=== PATIENT | male | born 1950 | race African-American/Black ===

== ENCOUNTER 2019-11-15 11:58 | Emergency (ER) | payer MEDICARE, MEDICAID ==
[~2019-11-15] VITALS: Ht 177.8 cm; Wt 79.0 kg
[2019-11-15] MEDS ORDERED: HYDROCODONE/ACETAMINOPHEN 5/325MG TABLET PO STA (12:46)
[2019-11-15 13:32] VITALS: BP 173/105
== END 2019-11-15 14:43 | disposition home or self-care (01) ==
LOC: ER 11:58
DX: S20.212A Contusion of left front wall of thorax, initial encounter (principal); W11.XXXA Fall on and from ladder, initial encounter; Y93.89 Activity, other specified; Y92.89 Other specified places as the place of occurrence of the external cause
CPT/HCPCS: 71101; 99283

== ENCOUNTER 2023-10-23 16:27 | Inpatient (IN) | payer MEDICARE, MEDICAID ==
[~2023-10-23] VITALS: Ht 177.8 cm; Wt 69.9 kg
[2023-10-23 22:59] LABS: BASOPHILS % 0.4 % (0.0-2.0); EOSINOPHILS % 0.1 % (0.0-5.0); HEMATOCRIT. 44.9 % (42.0-52.0); HEMOGLOBIN. 14.9 g/dL (14.0-18.0); LYMPHOCYTES % 7.8 % (20.0-50.0); MEAN CORPUSCULAR HGB CONC 33.2 g/dL (31.0-37.0); MEAN CORPUSCULAR VOLUME 96.4 fL (80.0-94.0); MEAN PLATELET VOLUME 8.2 fl (7.4-10.4); MONOCYTES % 5.7 % (2.0-8.0); PLATELET 168 x1000/uL (130-400); RED BLOOD CELL COUNT 4.66 mill/uL (4.7-6.1); WHITE BLOOD COUNT 5.2 x1000/uL (4.5-11.0)
[2023-10-23 23:08] LABS: POTASSIUM 4.7 mEq/L (3.5-5.1)
[2023-10-23 23:14] LABS: CREATININE 2.5 mg/dL (0.6-1.3)
[2023-10-24 01:51] VITALS: BP 151/83; PULSE 85; RESP 18
[2023-10-24 02:26] LABS: PROTHROMBIN TIME 11.2 sec (9.6-11.0)
[2023-10-24] MEDS ORDERED: ACETAMINOPHEN 650MG/20.3ML UDC PO PRN (02:30)
[2023-10-24] MEDS ORDERED: ONDANSETRON HCL 4MG/2ML INJ IV PRN (02:30)
[2023-10-24 04:56] VITALS: BP 151/83; PULSE 85; RESP 18; TEMP 98.1
[2023-10-24] MEDS: AMLODIPINE 10MG TABLET PO SCH (08:34)
[2023-10-24] MEDS: HYDROCODONE/ACETAMINOPHEN 5/325MG TABLET PO PRN (08:38)
[2023-10-24 08:42] VITALS: BP 142/90; PULSE 89; RESP 20; TEMP 98.4
[2023-10-24] MEDS ORDERED: NALOXONE HCL 0.4MG/ML VIAL IV PRN (11:45)
[2023-10-24 12:00] VITALS: BP 143/88; PULSE 87; RESP 21; TEMP 97.6
[2023-10-24] MEDS: LORAZEPAM 2MG/ML INJ IV NR (12:36)
[2023-10-24 16:00] VITALS: BP 156/97; PULSE 87; RESP 20; TEMP 98
[2023-10-24 20:00] VITALS: BP 134/92; PULSE 72; RESP 18; TEMP 97.8
[2023-10-24] MEDS: HYDRALAZINE HCL 25MG TABLET PO SCH (21:05)
[2023-10-25] VITALS: BP 146/89; PULSE 70; RESP 18; TEMP 97.5
[2023-10-25 04:00] VITALS: BP 137/88; PULSE 92; RESP 18; TEMP 97.7
[2023-10-25 20:00] VITALS: BP 131/87; PULSE 70; RESP 20; TEMP 97.9
[2023-10-26] VITALS: BP 145/94; PULSE 102; RESP 19; TEMP 97.7
[2023-10-26 04:00] VITALS: BP 134/91; PULSE 95; RESP 19; TEMP 97.6
[2023-10-26 08:00] VITALS: BP 137/90; PULSE 94; RESP 18; TEMP 97.7
[2023-10-26] MEDS: HYDROCODONE/ACETAMINOPHEN 10/325MG TABLET PO PRN (09:16)
[2023-10-26 12:00] VITALS: BP 126/84; PULSE 97; RESP 18; TEMP 98
[2023-10-26] MEDS ORDERED: HYDR-4001 MT (14:32)
[2023-10-26 15:08] VITALS: BP 126/84; PULSE 97; TEMP 98; O2SAT 99
[2023-10-26 16:00] VITALS: BP 136/84; PULSE 97; RESP 20; TEMP 98.5
== END 2023-10-26 18:08 | disposition home or self-care (01) | DRG 347 ==
LOC: ER 16:27 → 5WST 22:33 → 8WST 10-24 00:57
PROVIDERS: ADMIT Internal Medicine; ATTEND Internal Medicine
DX: S12.100A Unspecified displaced fracture of second cervical vertebra, initial encounter for closed fracture (principal); S32.018A Other fracture of first lumbar vertebra, initial encounter for closed fracture; S32.038A Other fracture of third lumbar vertebra, initial encounter for closed fracture; I10 Essential (primary) hypertension; M48.061 Spinal stenosis, lumbar region without neurogenic claudication; Z96.641 Presence of right artificial hip joint; V43.52XA Car driver injured in collision with other type car in traffic accident, initial encounter; Y92.410 Unspecified street and highway as the place of occurrence of the external cause; Y93.89 Activity, other specified; Y99.8 Other external cause status
CPT/HCPCS: 36415; 70490; 71045; 72131; 72141; 72148; 72170; 72192; 80048; 85025; 86850; 86900; 97162; 97165; 97535; 99285; J2060; L0172